=== PATIENT | female | born 1945 | race Caucasian/White ===

== ENCOUNTER 2016-11-03 14:56 | Inpatient (IN) | payer OTHER ==
[~2016-11-03] VITALS: Ht 157.5 cm; Wt 63.5 kg
[2016-11-03 15:01] VITALS: BP 159/100
[2016-11-03] MEDS ORDERED: DIAZ2TAB6 PO (15:07)
[2016-11-03] MEDS ORDERED: QUET50TA PO (15:07)
[2016-11-03] MEDS ORDERED: GABA300C PO (15:07)
[2016-11-03] MEDS ORDERED: ASPI325T49 PO (15:07)
[2016-11-03] MEDS ORDERED: ARIP2TAB11 PO (15:07)
[2016-11-03] MEDS ORDERED: LORA-476 PO (15:07)
[2016-11-03] MEDS ORDERED: MELO15TA11 PO (15:07)
[2016-11-03] MEDS ORDERED: SYN.075 PO (15:07)
[2016-11-03] MEDS ORDERED: ESCI20TA PO (15:07)
--- NOTE | 2016-11-03 15:09 | NUR ---
Patient BIBA BLS, transferred to bed 5. RN evaluating patient at bedside.
--- NOTE | 2016-11-03 15:10 | NUR ---
71/F BIBA FROM HOME FOR GRADUAL ONSET ABD PAIN WITH N/V. HX PERFORATED ESOPHAGUS, L KNEE REPLACED, CARDIAC HX. SKIN IS PINK/WARM/DRY; AAOX4 WITH EVEN AND UNSTEADY GAIT; LUNGS CLEAR BL; PT DENIES ANY FEVER, CP, SOB, OR COUGH AT THIS TIME; PATIENT STATES PAIN OF 5/10 AT THIS TIME; PATIENT POSITIONED FOR COMFORT; HOB ELEVATED; BEDRAILS UP X2; BED DOWN. ER MD MADE AWARE OF PT STATUS.
--- NOTE | 2016-11-03 15:10 | NUR ---
Note undone in EDM - 11/03/16 at 1648 by [email or web address] 71/F BIBA FROM HOME FOR GRADUAL ONSET ABD PAIN WITH N/V. HX PERFORATED ESOPHAGUS, L KNEE REPLACED, CARDIAC HX. SKIN IS PINK/WARM/DRY; AAOX4 WITH EVEN AND STEADY GAIT; LUNGS CLEAR BL; HR EVEN AND REGULAR; PT DENIES ANY FEVER, CP, SOB, OR COUGH AT THIS TIME; PATIENT STATES PAIN OF 5/10 AT THIS TIME; VSS; PATIENT POSITIONED FOR COMFORT; HOB ELEVATED; BEDRAILS UP X2; BED DOWN. ER MADE AWARE OF PT STATUS.
--- NOTE | 2016-11-03 15:19 | NUR ---
Dr. Quigley evaluating patient at bedside.
[2016-11-03] MEDS ORDERED: KETOROLAC 30 MG/ML VIAL IVP ONE (15:25)
[2016-11-03] MEDS ORDERED: NACL 0.9% 1,000 ML IV ONE (15:25)
[2016-11-03] MEDS ORDERED: ONDANSETRON 4 MG/2 ML VIAL IVP ONE (15:25)
--- NOTE | 2016-11-03 15:41 | NUR ---
INSERTED IV CATH 20G LAC; PT TOLERATED PROCEDURE WELL. IV PATENT/INTACT.
[2016-11-03 15:58] LABS: BASOPHILS # (AUTO) 0.1 K/uL (0.00-0.22); BASOPHILS % (AUTO) 1.3 % (0.0-2.0); EOSINOPHILS # (AUTO) 0.1 K/uL (0-0.4); EOSINOPHILS % (AUTO) 1.2 % (0.0-4.0); HEMATOCRIT 40.8 % (36-48); HEMOGLOBIN 13.1 g/dL (12.0-16.0); LYMPHOCYTES # (AUTO) 1.4 K/uL (2.5-16.5); LYMPHOCYTES % (AUTO) 13.1 % (20.5-51.1); MEAN CORPUSCULAR HEMOGLOBIN 29 pg (27-31); MEAN CORPUSCULAR HGB CONC 32 g/dL (33-37); MEAN CORPUSCULAR VOLUME 89 fL (80-94); MONOCYTES # (AUTO) 0.3 K/uL (0.8-1.0); MONOCYTES % (AUTO) 3.3 % (1.7-9.3); NEUTROPHILS # (AUTO) 8.6 K/uL (1.8-7.7); NEUTROPHILS % (AUTO) 81.1 % (42.2-75.2); PLATELET COUNT (AUTO) 290 K/uL (140-450); RED BLOOD CELL COUNT(AUTO) 4.57 MIL/uL (4.20-5.40); RED CELL DISTRIBUTION WIDTH 12.8 % (11.6-13.7); WHITE BLOOD COUNT (AUTO) 10.5 K/uL (4.8-10.8)
[2016-11-03 16:08] LABS: ANION GAP 10.1 (8-16); CALCIUM 9.2 mg/dL (8.5-10.1); CARBON DIOXIDE 29.9 mmol/L (21-32)
[2016-11-03 16:12] LABS: PARTIAL THROMBOPLASTIN TIME 27.1 secs (22-35.6); PROTHROMBIN TIME 10.4 secs (10.8-13.4)
[2016-11-03 16:18] LABS: LACTIC ACID 1.6 mmol/L (0.4-2.0)
[2016-11-03 16:23] LABS: ALBUMIN 3.4 g/dL (3.4-5.0); TOTAL BILIRUBIN 0.7 mg/dL (0.0-1.0); TOTAL PROTEIN, SERUM 9.2 g/dL (6.4-8.2)
[2016-11-03] MEDS ORDERED: LORazepam 2 MG/ML VIAL IVP ONE (16:30)
[2016-11-03] MEDS ORDERED: fentaNYL 0.05 MG/ML VIAL IVP ONE (16:30)
[2016-11-03] MEDS ORDERED: NACL 0.9% 1,000 ML IV SCH (16:57)
[2016-11-03] MEDS ORDERED: ONDANSETRON 4 MG/2 ML VIAL IVP PRN (17:00)
[2016-11-03] MEDS ORDERED: ACETAMINOPHEN 325 MG TAB PO PRN (17:00)
--- NOTE | 2016-11-03 17:21 | NUR ---
GAVE BREPORT TO BRANDON CABALLERO. BED 'S NOT READY YET. WILL CALL BACK.
[2016-11-03 17:32] LABS: CHOL/HDL RATIO 3.5 (1-4.5); FREE T4 (FREE THYROXINE) 1.19 ng/dL (0.76-1.46); PHOSPHORUS 3.6 mg/dL (2.5-4.9); THYROID STIMULATING HORMONE 0.38 uIU/mL (0.34-3.74)
--- NOTE | 2016-11-03 17:35 | NUR ---
BRANDON HANCOCK IN 15 MINS WILL CALL BACK; BED'S NOT AVAILABLE.
--- NOTE | 2016-11-03 17:43 | NUR ---
Patient will be admitted to care of DR TRAN. Admited to TELE. Will go to [id number]. Belongings list completed. Report to BRANDON CABALLERO.
[2016-11-03] MEDS ORDERED: FUROSEMIDE 20 MG TAB PO SCH (18:25)
[2016-11-03] MEDS ORDERED: LORazepam 1 MG TAB PO PRN (18:30)
--- NOTE | 2016-11-03 18:37 | NUR ---
RECEIVED PT ON FLOOR VIA DIRDIYA, PT IS A/OX4, PT APPEARS TO BE ANXIOUS, SKIN IS INTACT, IV IS ON THE LT AC, PATENT, INTACT, FLUSHING WELL, PT IS ON O2 2L NC, ORIENTED PT TO ROOM, DISCUSSED PLAN OF CARE WITH PT, PT VERBALIZED UNDERSTANDING, SAFETY/FALL PRECAUTIONS ARE IN PLACE, CALL LIGHT IS WITHIN REACH, WILL CONTINUE TO MONITOR.
[2016-11-03] MEDS ORDERED: FUROSEMIDE 20 MG/2 ML VIAL IVP SCH (18:50)
[2016-11-03] MEDS: HYDROcodone/APAP 7.5/325 MG 1 TAB PO PRN (19:29)
--- NOTE | 2016-11-03 19:30 | NUR ---
RECEIVED PHONE CALL FROM DR. SAGASTUME, PER DR. SAGASTUME DC THE AMPICILLIN AND START PT ON CEFOXITIN 1 GM, Q6H, IVPB.
--- NOTE | 2016-11-03 19:45 | NUR ---
ENDORSED PT TO BRANDON SANABRIA. FOR CONTINUITY OF CARE, PT IS STABLE AT THIS TIME, PT IS HAVING A BLOOD DRAW AT BEDSIDE.
--- NOTE | 2016-11-03 19:46 | NUR ---
RECEIVED PT FROM DAVID TAYLOR PT IS AAOX4 . ON TELEMETRY ST PT ANXIOUS AND PAIN MEDIC WAS GIVEN ORDER, HL ON LEFT AC PATENT ,SKIN IS INTACT, TECH IS HERE TO TAKE GALLBLADDER US. PT IS ORIENTED TO THE FLOOR CALL LIGHT WITHIN REACH
[2016-11-03 20:00] VITALS: BP 151/98
[2016-11-03] MEDS ORDERED: ASPIRIN 325 MG TAB PO SCH (21:00)
[2016-11-03] MEDS ORDERED: AMPICILLIN 1,000 MG in NACL 0.9% 50 ML IV SCH (21:00)
[2016-11-03 21:10] LABS: APPEARANCE,URINE HAZY (CLEAR); BILIRUBIN,URINE NEGATIVE (NEGATIVE); BLOOD, URINE 1+ (NEGATIVE); COLOR,URINE YELLOW (YELLOW); LEUKOCYTE ESTERASE ,URINE NEGATIVE (NEGATIVE); NITRITE, URINE NEGATIVE (NEGATIVE); PH,URINE 7.5 (5.0-9.0); PROTEIN,URINE 1+ (NEGATIVE); UGLUCOSE NEGATIVE (NEGATIVE); UROBILINOGEN,URINE 0.2 EU/dL (0.2 - 1)
[2016-11-03 21:13] LABS: WBC,URINE 0-5 /HPF (0-5)
[2016-11-03 21:14] LABS: MUCUS,URINE 1+ /LPF (None Seen)
[2016-11-03 21:15] LABS: BACTERIA,URINE 1+ /HPF (None Seen); URINE AMORPHOUS PHOSPHATES 1+ /HPF (None Seen)
[2016-11-03] MEDS: DIAZEPAM 2 MG TAB PO PRN (21:28)
[2016-11-03] MEDS: QUEtiapine FUMARATE 25 MG TAB PO SCH (21:29)
[2016-11-03] MEDS: DOCUSATE SODIUM 100 MG GELCAP PO SCH (21:29)
--- NOTE | 2016-11-03 22:00 | NUR ---
PT REPOSITIONED ON TELEMETRY ST NOT DISTRESS NOTED AT THIS TIME
--- NOTE | 2016-11-03 23:30 | NUR ---
HER NIECE CALLED AND SAID:"PT CAN NOT HAVE SURGERY UNDER GENERAL ANESTHESIA.BECAUSE HAS PROBLEM WITH HER TROTH .SHE HAD ALSO THIS PROBLEM AND HAD TRACH."TALKED W/DR. LANDEROS RESIDENT AND GAVE HER NIECE'S TELEPHONE NUMBER([phone]).
--- NOTE | 2016-11-03 23:35 | NUR ---
PT'S NIECE 'S NAME IS LYDIA AND # IS [phone].
[2016-11-04] VITALS: BP 107/83
--- NOTE | 2016-11-04 | NUR ---
PT WAS TRANSFER TO ROOM 124B NOT DISTRESS NOTED ON TELEMETRY ST
--- NOTE | 2016-11-04 00:30 | NUR ---
DR PANCHAL IS HERE AND TALKED TO PT
[2016-11-04] MEDS: MORPHINE SULFATE 2 MG/ML SYR IVP PRN ×2 (00:51→21:27)
[2016-11-04 04:00] VITALS: BP 90/60
--- NOTE | 2016-11-04 04:00 | NUR ---
SPONGE BATH GIVEN KARTHIK VIZCAINO REPOSITIONED ON TELE SR
[2016-11-04] MEDS: HYDROcodone/APAP 7.5/325 MG 1 TAB PO PRN ×2 (06:09→12:52)
--- NOTE | 2016-11-04 06:18 | NUR ---
PT LIKE TO TALK TO SURGEON DR Figueroa before sign a consent for cholecystectomy she is afraid for her hx 3 years ago that during endoscopy she had rupture of esophagus,
[2016-11-04 06:59] LABS: BASOPHILS # (AUTO) 0.2 K/uL (0.00-0.22); BASOPHILS % (AUTO) 2.4 % (0.0-2.0); EOSINOPHILS # (AUTO) 0.1 K/uL (0-0.4); EOSINOPHILS % (AUTO) 1.3 % (0.0-4.0); HEMATOCRIT 45.6 % (36-48); HEMOGLOBIN 14.4 g/dL (12.0-16.0); LYMPHOCYTES # (AUTO) 1.8 K/uL (2.5-16.5); LYMPHOCYTES % (AUTO) 17.8 % (20.5-51.1); MEAN CORPUSCULAR HEMOGLOBIN 29 pg (27-31); MEAN CORPUSCULAR HGB CONC 32 g/dL (33-37); MEAN CORPUSCULAR VOLUME 91 fL (80-94); MONOCYTES # (AUTO) 0.5 K/uL (0.8-1.0); MONOCYTES % (AUTO) 5.4 % (1.7-9.3); NEUTROPHILS # (AUTO) 7.4 K/uL (1.8-7.7); NEUTROPHILS % (AUTO) 73.1 % (42.2-75.2); PLATELET COUNT (AUTO) 286 K/uL (140-450); RED BLOOD CELL COUNT(AUTO) 5.01 MIL/uL (4.20-5.40)
[2016-11-04 07:13] LABS: ANION GAP 12.4 (8-16); CALCIUM 8.7 mg/dL (8.5-10.1); CARBON DIOXIDE 27.8 mmol/L (21-32); CREATININE 1.4 mg/dL (0.6-1.3); TOTAL BILIRUBIN 0.4 mg/dL (0.0-1.0); TOTAL PROTEIN, SERUM 8.6 g/dL (6.4-8.2)
[2016-11-04 07:16] LABS: POTASSIUM 5.2 mmol/L (3.5-5.1)
--- NOTE | 2016-11-04 07:21 | NUR ---
PT IS ENDORSED ;TO ESTELLA TAYLOR FOR CONTINUITY OF CARE
[2016-11-04 07:27] LABS: PROTHROMBIN TIME 10.4 secs (10.8-13.4)
--- NOTE | 2016-11-04 07:30 | NUR ---
RECEIVED PATIENT REPORT AT BEDSIDE FROM NIGHT NURSE. PATIENT SHOWS NO S/S OF DISTRESS ON ROOM AIR. ON TELE MONITOR. PATIENT IS AAOX4 AND STATES 3/10 ABD PAIN. SKIN INTACT. NOTED IV SITE ON THE L AC WITH IVF'S INFUSING WELL. PATIENT WAS EXPLAINED POC FOR TODAY. PATIENT VERBALIZES UNDERSTANDING HOWEVER APPEARS ANXIOUS. PATIENT WAS EDUCATED ON HOW TO USE THE CALL LIGHT FOR ASSISTANCE. THE BED IS LOWERED WITH CALL LIGHT WITHIN REACH. WILL CONTINUE TO MONITOR. Addendum: 11/04/16 at 1852 by Anh Gonzalez RN PATIENT IS ON O2 5L VIA NASAL CANNULA NOT ON ROOM AIR.
--- NOTE | 2016-11-04 07:55 | NUR ---
PATIENT HAS BEEN SCREENED AND CATEGORIZED MODERATE NUTRITION RISK. PATIENT WILL BE SEEN WITHIN 3-5 DAYS OF ADMISSION. 11/06/16-11/08/[address]
[2016-11-04 08:00] VITALS: BP 92/63
[2016-11-04] MEDS: ESCITALOPRAM 20 MG TAB PO SCH (08:26)
[2016-11-04] MEDS: LEVOTHYROXINE 0.075 MG TAB PO SCH (08:26)
[2016-11-04] MEDS: QUEtiapine FUMARATE 25 MG TAB PO SCH ×3 (08:27→21:40)
[2016-11-04] MEDS: GABAPENTIN 300 MG CAP PO SCH ×3 (08:27→17:00)
[2016-11-04] MEDS: DOCUSATE SODIUM 100 MG GELCAP PO SCH ×3 (08:27→21:40)
--- NOTE | 2016-11-04 08:31 | NUR ---
ADMINISTERED SCHEDULED MEDICATIONS. PATIENT VOICED C/O OF PAIN 06/04 ADMINISTERED TYLENOL 650 MG PO. WILL REASSESS PAIN IN 1 HR. PATIENT TOLERATED MEDICATIONS WELL. PATIENT IS NOW SPEAKING WITH NIECE CONCERNED ABOUT POSSIBLE SURGERY. PATIENT SHOWS NO S/S OF DISTRESS ON ROOM AIR. THE BED IS LOWERED WITH CALL LIGHT WITHIN REACH WILL CONTINUE TO MONITOR. Addendum: 11/04/16 at 1852 by Anh Gonzalez RN PATIENT IS ON O2 5L VIA NASAL CANNULA NOT ON ROOM AIR.
--- NOTE | 2016-11-04 08:35 | NUR ---
NOTIFIED MD OF PATIENT'S ELEVATED POTASSIUM LEVEL OF 5.2.
[2016-11-04] MEDS ORDERED: NACL 0.9% 1,000 ML IV SCH ×2 (08:40→11:25)
[2016-11-04] MEDS: SODIUM POLYSTYRENE 15 GM/60 ML UDBTL PO SCH ×3 (09:00→11:10)
[2016-11-04] MEDS ORDERED: ARIPIPRAZOLE 2 MG PO SCH (09:00)
[2016-11-04] MEDS ORDERED: LORazepam 0.5 MG TAB PO PRN (09:15)
[2016-11-04] MEDS ORDERED: ARIPiprazole 10 MG TAB PO SCH (09:15)
--- NOTE | 2016-11-04 09:30 | NUR ---
PATIENT STATES PAIN IS TOLERABLE AND WILL NOTIFY IF PAIN LEVEL WORSENS.
[2016-11-04] MEDS ORDERED: SODIUM POLYSTYRENE 15 GM/60 ML UDBTL PO ONE (10:00)
[2016-11-04] MEDS ORDERED: LACTOBACILLUS RHAMNOSUS GG 1 EACH CAP PO SCH (10:00)
--- NOTE | 2016-11-04 10:55 | NUR ---
ADMINISTERING PATIENTS MEDICATIONS. PATIENT TOLERATED WELL. PATIENT IS BEING SEEN BY SALES ENGINEER. PATIENT C/O ABD PAIN 10/04. WILL ADMINISTER PAIN MEDICATION.
--- NOTE | 2016-11-04 11:00 | NUR ---
PATIENT REFUSED TO TAKE KAYEXALATE. IS AWARE AND IS SEEING PATIENT. WILL AWAIT FOR FURTHER DIRECTIONS.
--- NOTE | 2016-11-04 11:05 | NUR ---
PATIENT STATES WHILE HAVING ECHO DONE SHE WAS EXPERIENCING ABD PAIN D/T THE MACHINE PRESSING AGAINST HER SKIN. PATIENT STATES HER PAIN IS NOT BAD HOWEVER HER PAIN IS 6/10 FOR ABD PAIN. PATIENT BP IS LOW WILL NOTIFY .
--- NOTE | 2016-11-04 11:30 | NUR ---
AWARE PATIENT REFUSED KAYEXALATE. STATES WE WILL MONITOR PATIENT'S POTASSIUM.
[2016-11-04 11:42] VITALS: BP 86/55
--- NOTE | 2016-11-04 12:25 | NUR ---
PATIENT IS C/O ABD PAIN /. PATIENT IS AWARE BP IS LOW AND ASKS FOR PAIN MEDICATION. DR IS AWARE AND APPROVED TO GIVE PRN PAIN MEDICATION NORCO 7.5/325 MG PO. WILL REASSESS FOR PAIN.
--- NOTE | 2016-11-04 12:30 | NUR ---
PATIENT WILL BE GIVEN NORCO 7.5/325MG PO. BP IS 86/[address] AWARE AND APPROVED TO GIVE PRN PAIN MEDICATION OF NORCO 7.5/325 MG PO. PATIENT BP WILL BE REASSESSED IN ONE HR. PATIENT CONTINUOUS TO C/O ABD PAIN.
[2016-11-04] MEDS: MELOXICAM 15 MG PO SCH (12:45)
[2016-11-04] MEDS: ARIPIPRAZOLE 2 MG PO SCH (12:45)
--- NOTE | 2016-11-04 12:55 | NUR ---
DR MALDONADO IS SEEING PATIENT AND OKAYED FOR PATIENT TO HAVE SURGERY TODAY.
--- NOTE | 2016-11-04 13:30 | NUR ---
PATIENT IS SLEEPING AND SHOWS NO S/S OF DISTRESS ON O2 5L VIA NASAL CANNULA. PATIENT FAMILY AT BEDSIDE. THE BED IS LOWERED WITH CALL LIGHT WITHIN REACH.
[2016-11-04 16:00] VITALS: BP 81/53
--- NOTE | 2016-11-04 16:00 | NUR ---
PATIENT IS RESTING COMFORTABLY AND SHOWS NO S/S OF DISTRESS ON O2 5L VIA NASAL CANNULA. PATIENT DENIES PAIN. THE BED IS LOWERED WITH CALL LIGHT WITHIN REACH.
--- NOTE | 2016-11-04 17:00 | NUR ---
PATIENT BEING SEEN BY DR SAGASTUME. EXPLAINED PROCEDURE TO PATIENT. PATIENT FAMILY IS AT BEDSIDE WELL. PATIENT AND FAMILY'S QUESTIONS WERE ALL ANSWERED. PATIENT CONSENT WAS SIGNED FOR PROCEDURE.
--- NOTE | 2016-11-04 17:21 | NUR ---
MEDICATIONS WERE NOT GIVEN BECAUSE PATIENT WAS OFF UNIT FOR PROCEDURE.
[2016-11-04] MEDS ORDERED: DESFLURANE 240 ML BTL INH ONE (17:30)
[2016-11-04] MEDS ORDERED: GLYCOPYRROLATE 0.2 MG/ML VIAL ONE (17:30)
[2016-11-04] MEDS ORDERED: ROCURONIUM 50 MG/5 ML VIAL IV ONE (17:30)
[2016-11-04] MEDS ORDERED: DEXAMETHASONE 4 MG/ML VIAL ONE (17:30)
[2016-11-04] MEDS ORDERED: KETOROLAC 60 MG/2 ML VIAL IM ONE (17:30)
[2016-11-04] MEDS ORDERED: PHENYLEPHRINE 10 MG/ML VIAL ONE (17:30)
[2016-11-04] MEDS ORDERED: PROPOFOL 200 MG/20 ML VIAL IV ONE (17:30)
[2016-11-04] MEDS ORDERED: ONDANSETRON 4 MG/2 ML VIAL ONE (17:30)
[2016-11-04] MEDS ORDERED: BUPIVACAINE-MPF/EPI 0.25% 30 ML VIAL INJ ONE ×2 (17:50)
[2016-11-04] MEDS ORDERED: MEPERIDINE 50 MG/ML SYR IM ONE (18:00)
--- NOTE | 2016-11-04 18:00 | NUR ---
SCHEDULED MEDICATIONS WERE NOT GIVE BC PATIENT WAS OFF UNIT FOR PROCEDURE.
[2016-11-04] MEDS ORDERED: fentaNYL 0.05 MG/ML VIAL ONE (18:01)
[2016-11-04] MEDS ORDERED: MIDAZOLAM 2 MG/2 ML VIAL ONE (18:01)
[2016-11-04] MEDS ORDERED: MIDAZOLAM 2 MG/2 ML VIAL IVP ONE (18:45)
[2016-11-04] MEDS ORDERED: MEPERIDINE 25 MG/ML SYR IVP PRN (18:45)
[2016-11-04] MEDS ORDERED: METOCLOPRAMIDE 10 MG/2 ML INJ VIAL IVP PRN (18:45)
[2016-11-04] MEDS ORDERED: THROMBIN KIT 20 MU VIAL TP ONE (19:05)
--- NOTE | 2016-11-04 19:05 | NUR ---
RECEIVED PATIENT REPORT. PATIENT CURRENTLY OFF THE UNIT FOR SURGERY. PATIENT'S IN THE ROOM
--- NOTE | 2016-11-04 19:05 | NUR ---
PATIENT IS OFF UNIT. PATIENT REPORT WAS GIVEN TO NIGHT NURSE FOR CONTINUITY OF CARE. PATIENT FAMILY IN ROOM AND AWARE OF CHANGE OF SHIFT.
[2016-11-04] MEDS ORDERED: DEXT 5% / NACL 0.45% 1,000 ML IV SCH (19:20)
[2016-11-04] MEDS: MEPERIDINE 25 MG/ML SYR IVP PRN ×2 (20:05→20:20)
[2016-11-04 20:36] LABS: ANION GAP 11.2 (8-16); CARBON DIOXIDE 28.8 mmol/L (21-32); CREATININE 1.4 mg/dL (0.6-1.3)
[2016-11-04 20:50] VITALS: BP 109/63
--- NOTE | 2016-11-04 20:50 | NUR ---
PATIENT RETURNED TO THE UNIT S/P LAP PANFILO. PATIENT AWAKE AND ALERT. PATIENT PUT ON 6L 02 VIA NON-REBREATHER MASK. VSS WITHIN NORMAL LIMITS. 4 ABD INCISIONS NOTED TO THE ABD. INCISIONS BUCK, DRY AND INTACT AND POWER DISTRIBUTION ENGINEER. PATIENT PLACED ON TELE MONITORING. BED LOWERED WITH CALL LIGHT WITHIN REACH. WILL CONTINUE TO MONITOR
[2016-11-05] VITALS (16 sets, daily range): BP systolic 74–106; BP diastolic 40–61
--- NOTE | 2016-11-05 01:04 | NUR ---
MADE DR LANDEROS AWARE OF PATIENT BP OF 83/49. NO NEW ORDERS
--- NOTE | 2016-11-05 03:45 | NUR ---
PATIENT ASLEEP IN BED. NO S/S OF DISTRESS NOTED
[2016-11-05] MEDS: MORPHINE SULFATE 2 MG/ML SYR IVP PRN ×2 (04:09→23:49)
[2016-11-05] MEDS: HYDROcodone/APAP 7.5/325 MG 1 TAB PO PRN (05:39)
[2016-11-05 05:52] LABS: BASOPHILS # (AUTO) 0.1 K/uL (0.00-0.22); BASOPHILS % (AUTO) 1.5 % (0.0-2.0); EOSINOPHILS # (AUTO) 0.1 K/uL (0-0.4); EOSINOPHILS % (AUTO) 1.6 % (0.0-4.0); HEMATOCRIT 33.1 % (36-48); HEMOGLOBIN 10.4 g/dL (12.0-16.0); LYMPHOCYTES % (AUTO) 12.2 % (20.5-51.1); MEAN CORPUSCULAR HEMOGLOBIN 28 pg (27-31); MEAN CORPUSCULAR HGB CONC 32 g/dL (33-37); MEAN CORPUSCULAR VOLUME 90 fL (80-94); MONOCYTES # (AUTO) 0.4 K/uL (0.8-1.0); MONOCYTES % (AUTO) 4.6 % (1.7-9.3); NEUTROPHILS # (AUTO) 6.3 K/uL (1.8-7.7); NEUTROPHILS % (AUTO) 80.1 % (42.2-75.2); PLATELET COUNT (AUTO) 212 K/uL (140-450); RED BLOOD CELL COUNT(AUTO) 3.69 MIL/uL (4.20-5.40); RED CELL DISTRIBUTION WIDTH 12.8 % (11.6-13.7); WHITE BLOOD COUNT (AUTO) 7.9 K/uL (4.8-10.8)
[2016-11-05 06:10] LABS: ALBUMIN 2.4 g/dL (3.4-5.0); ANION GAP 7.4 (8-16); CALCIUM 7.9 mg/dL (8.5-10.1); CARBON DIOXIDE 31.9 mmol/L (21-32); CREATININE 1.1 mg/dL (0.6-1.3); POTASSIUM 4.3 mmol/L (3.5-5.1); TOTAL BILIRUBIN 0.2 mg/dL (0.0-1.0); TOTAL PROTEIN, SERUM 6.7 g/dL (6.4-8.2)
[2016-11-05 06:15] LABS: MAGNESIUM 2.1 mg/dL (1.8-2.4); PHOSPHORUS 3.7 mg/dL (2.5-4.9)
--- NOTE | 2016-11-05 07:17 | NUR ---
PATIENT REPORT GIVEN AT BEDSIDE. PATIENT ENDORSED IN STABLE CONDITION
--- NOTE | 2016-11-05 07:20 | NUR ---
RECEIVED PATIENT REPORT AT BEDSIDE FROM NIGHT NURSE. PATIENT SHOWS NO S/S OF DISTRESS ON O2 2L NC. ON TELE MONITOR. PATIENT IS AAOX4 AND STATES 7/10 ABD PAIN. MD'S ARE AWARE OF PATIENTS LOW BP AND AWARE OF PATIENT PAIN LEVEL. PATIENT IS S/P LAPAROSCOPIC CHOLECYSTECTOMY 11/04/16 WITH 4 ABD INCISIONS WITH ECCHYMOSIS SURROUNDING EACH INCISION. NOTED IV SITE ON THE L AC WITH IVF'S INFUSING WELL. PATIENT WAS EXPLAINED POC FOR TODAY. PATIENT VERBALIZES UNDERSTANDING. PATIENT WAS EDUCATED ON HOW TO USE THE CALL LIGHT FOR ASSISTANCE. THE BED IS LOWERED WITH CALL LIGHT WITHIN REACH. WILL CONTINUE TO MONITOR.
[2016-11-05] MEDS ORDERED: ALBUTEROL SULFATE/IPRATROPIU 3 ML SOL IH PRN (07:55)
[2016-11-05] MEDS ORDERED: FUROSEMIDE 20 MG/2 ML VIAL IVP SCH (08:30)
[2016-11-05] MEDS ORDERED: KETOROLAC 10 MG TAB PO SCH (09:00)
--- NOTE | 2016-11-05 09:15 | NUR ---
PATIENT BEING SEEN BY DR SAGASTUME.
[2016-11-05] MEDS: LACTOBACILLUS RHAMNOSUS GG 1 EACH CAP PO SCH (09:18)
[2016-11-05] MEDS: DOCUSATE SODIUM 100 MG GELCAP PO SCH ×2 (09:18→21:43)
[2016-11-05] MEDS: ESCITALOPRAM 20 MG TAB PO SCH (09:19)
[2016-11-05] MEDS: GABAPENTIN 300 MG CAP PO SCH ×3 (09:20→17:00)
--- NOTE | 2016-11-05 09:20 | NUR ---
ADMINISTERED SCHEDULED MEDICATIONS. PATIENT TOOK ONE MEDICATION AT A TIME. PATIENT HAS C/O ABD PAIN AND PAIN WHILE BREATHING. MD IS AWARE AND SCHEDULED ONE TIME DOSE OF KETOROLAC 10 MG PO AND BREATHING TX. PATIENT TOLERATED ACTIVITY WELL. THE BED IS LOWERED WITH CALL LIGHT WITHIN REACH.
[2016-11-05] MEDS: ARIPIPRAZOLE 2 MG PO SCH (09:21)
[2016-11-05] MEDS: MELOXICAM 15 MG PO SCH (09:22)
[2016-11-05] MEDS: LEVOTHYROXINE 0.075 MG TAB PO SCH (09:22)
[2016-11-05] MEDS: QUEtiapine FUMARATE 25 MG TAB PO SCH ×2 (09:22→21:43)
[2016-11-05] MEDS ORDERED: HYDROcodone/APAP 10/325 MG 1 TAB TAB PO SCH (09:30)
--- NOTE | 2016-11-05 10:00 | NUR ---
PATIENT HAS FAMILY AT BEDSIDE. PATIENT SHOWS NO S/S OF DISTRESS ON O2 2L VIA NC. WILL CONTINUE TO MONITOR.
[2016-11-05] MEDS: CHLORHEXADINE GLUC 2% CLOTH TP SCH (11:00)
--- NOTE | 2016-11-05 11:17 | NUR ---
SS NOTE: PER TAYLA FROM DR. MONGE'S OFFICE ([phone]), DR. MONGE USES [facility] ([phone]).
--- NOTE | 2016-11-05 12:50 | NUR ---
ARRIVED TO PATIENT ROOM. PATIENT C/O PAIN AND REQUEST FOR PAIN MEDICATIONS. CHECKED BP AND IS 74/40. DR MALDONADO CAME TO SEE PATIENT AND IS AWARE OF PT BP. PATIENT DENIES PAIN AND SOB. DR MALDONADO WILL PLACE ORDERS FOR 250 CC NS BOLUS. WILL AWAIT FOR ORDERS.
[2016-11-05] MEDS: MUPIROCIN 2% OINT 22 GM TUBE TP SCH (12:58)
[2016-11-05] MEDS ORDERED: NACL 0.9% 250 ML IV SCH ×2 (13:00→14:10)
--- NOTE | 2016-11-05 13:05 | NUR ---
PATIENT BP IS NO 85/50 AFTER ADMINISTERING 100CC'S OF NS BOLUS. WILL REASSESS AGAIN AFTER THE NEXT 100CC'S.
--- NOTE | 2016-11-05 13:13 | NUR ---
PATIENT BP IS NOW 88/56. PATIENT DENIES SOB AND CHEST PAIN. PATIENT STATES "I FEEL FINE". WILL REASSESS BP IN 15 MIN.
--- NOTE | 2016-11-05 13:22 | NUR ---
NOTIFIED DR. ODOM OF PATIENT BP OF 92/55. WILL ADMINISTER THE LAST 50CC OF IV NS BOLUS FROM DR MALDONADO'S ORDERS. WILL AWAIT FOR NEW ORDERS.
--- NOTE | 2016-11-05 13:40 | NUR ---
RECHECKED BP AT 82/50 HR 80. PATIENT IS ASYMPTOMATIC, DENIES CHEST PAIN, DIZZINESS, AND SOB. WILL RECHECK IN 10MIN.
--- NOTE | 2016-11-05 13:50 | NUR ---
PATIENT BP IS 81/45. PATIENT CONTINUOS TO DENY CHEST PAIN AND SOB. MD ODOM WAS NOTIFIED AND WILL SEE PATIENT.
--- NOTE | 2016-11-05 14:00 | NUR ---
CHANGED BP MACHINES AND RECHECKED BP AT 91/[address] ODOM IS SEEING PATIENT AND AWARE OF LOW BP. DR TOMAS IN ORDER TO GIVE 250CC OF NORMAL SALINE AT A RATE OF 125 ML/HR WILL INITIATE.
--- NOTE | 2016-11-05 14:10 | NUR ---
BP WAS RECHECKED AT 91/53. 250CC OF NS AT 125 ML/HR WILL BE STARTED NOW. PATIENT SHOWS NO S/S OF ACUTE DISTRESS. PATIENT IS AAOX4 AND ON O2 2L VIA NC. RT IS NOW WITH PATIENT AND WILL BEGIN A BREATHING TX.
--- NOTE | 2016-11-05 14:25 | NUR ---
BP IS 84/53. WILL CONTINUE TO REASSESS EVERY 15 MIN.
--- NOTE | 2016-11-05 14:40 | NUR ---
BP IS NOW 84/50 WITH 75ML ALREADY INFUSED. MD WILL BE NOTIFIED AFTER 150 CC OF NS HAS BEEN INFUSED AND BE NOTIFIED OF NEW BP.
--- NOTE | 2016-11-05 15:25 | NUR ---
NOTIFIED OF BP OF 85/49 AFTER INFUSING 150 CC OF NS AT 125 ML/HR. DR ORDERED TO CONTINUE IVF'S.
--- NOTE | 2016-11-05 16:20 | NUR ---
PATIENT BP IS 96/55 AFTER INFUSING 250 CC'S OF NS AT 125 ML/HR. MD REQUEST TO AMB PATIENT IN UNIT.
--- NOTE | 2016-11-05 16:45 | NUR ---
PATIENT BP IS NOW 104/54 AND DENIES PAIN AND SOB. PATIENT SHOWS NO S/S OF ACUTE DISTRESS. PATIENT IS ASYMPTOMATIC. WILL CONTINUE TO MONITOR. PATIENT IS AWARE MD WOULD LIKE HER TO AMB.
--- NOTE | 2016-11-05 17:30 | NUR ---
PATIENT BP IS 98/55 AND DENIES PAIN AND SOB. PATIENT ASKED TO AMB ON UNIT HOWEVER PATIENT'S DINNER ARRIVED. STATED SHE WOULD AMB AFTER EATING DINNER. ASSESS PATIENT IV AND IT IS LEAKING. WILL INSERT A NEW IV.
--- NOTE | 2016-11-05 18:00 | NUR ---
WAS NOT ABLE TO ADMINISTER SCHEDULED MEDICATIONS. MEDICATION ROOM IS CLOSED FOR MAINTENANCE. WILL ENDORSED TO NIGHT NURSE.
--- NOTE | 2016-11-05 18:43 | NUR ---
PATIENT SEEN BY
--- NOTE | 2016-11-05 18:50 | NUR ---
CAMPBELL FROM DR CATHY MONGE CALLED TO HAVE MD ORDER FOR PATIENT TO CONTINUE [facility] AND TO SEND OVER THE ORDER TO THEM FAX # is [phone] PHONE # [phone].
--- NOTE | 2016-11-05 18:53 | NUR ---
* ST NOTE * Pt seen at bedside. Bedside dysphagia and oral mechanism exams completed. See evaluation report for further details. Pt tolerating 5/5 alternating PO trials of regular solid dinner w/out s/s of aspiration, exhibiting no residue or pocketing of solids in oral cavity during or after PO intake. Pt also tolerating 4/4 alternating PO trials of thin liquid milk via a straw w/out s/s of aspiration, exhibiting clear voicing WFL w/out wet or gargly vocal quality after PO intake. Pt and caregiver/nsg education completed regarding safe swallow compensatory strategies pt could utilize to aid with swallow function, with pt and caregivers/nsg verbalizing understanding and agreement with clinicians' recommendations. Pt is safe to remain on current PO diet consistency of regular solids with thin liquids for all meals, and does not require further ST follow up at this time. Pt and caregiver/nsg education completed regarding results of evaluation; benefits of abiding by aspiration precautions; and prognosis for improvement; with pt and caregiver/nsg verbalizing understanding and agreement with clinician's recommendations. Recommend: - Continuation of Regular solids with thin liquids PO diet consistency - Distal supervision by caregivers/staff/family during PO intake to assure aspiration precautions are in place No further ST follow up recommended at this time. G8996 CI G8997 CH G8998 NOMS Level 1 Time In/Out 17:45 - 18:15
--- NOTE | 2016-11-05 19:20 | NUR ---
RECEIVED PATIENT REPORT AT BEDSIDE. PATIENT AWAKE, ALERT AND ORIENTED. NO S/S OF OF DISTRESS NOTED. ABD INCISIONS CLEAN DRY AND INTACT. NO IV LINE IN PLACE. PATIENT ON TELE MONITORING. BED LOWERED WITH CALL LIGHT WITHIN REACH. WILL CONTINUE TO MONITOR
--- NOTE | 2016-11-05 19:20 | NUR ---
PATIENT IS AAOX4 AND SHOWS NO S/S OF ACUTE DISTRESS ON 2L O2 NC. PATIENT ORDERS HAVE BEEN ENDORSED TO LEDY TAYLOR TO OBTAIN ORTHOSTATIC BP, AMB PATIENT, AND IS AWARE OF PATIENT IV DISCONTINUED FROM EARLIER. GAVE REST OF PT REPORT AT BEDSIDE. PATIENT ENDORSED IN STABLE CONDITION.
--- NOTE | 2016-11-05 20:30 | NUR ---
BP 89/54 WHILE PATIENT IS ON [place] POSITION. HR 88. O2 SAT 98% ON ROOM AIR. NO S/S OF DISTRESS. WILL CONTINUE TO MONITOR
--- NOTE | 2016-11-05 20:30 | NUR ---
PATIENT REFUSED TO WEAR SCD. PURPOSE AND RISK AND BENEFITS DISCUSSED WITH THE PATIENT. PATIENT STILL REFUSED TO HAVE SCD IN PLACE
[2016-11-05] MEDS: DIAZEPAM 2 MG TAB PO PRN (21:43)
[2016-11-05] MEDS ORDERED: NACL 0.9% 1,000 ML IV SCH (22:00)
--- NOTE | 2016-11-05 22:51 | NUR ---
PATIENT ASLEEP IN BED. NO S/S OF DISTRESS NOTED. WILL CONTINUE TO MONITOR
--- NOTE | 2016-11-05 23:35 | NUR ---
SCHEDULED ANTIBIOTIC FOR 1800 NOT ADMINISTERED. NEW IV LINE STARTED AT 2130. NEXT SCHEDULED DOSE ADMINISTERED
--- NOTE | 2016-11-06 01:26 | NUR ---
PATIENT ASLEEP IN BED. NO S/S OF DISTRESS NOTED
[2016-11-06 02:52] VITALS: BP 100/60
[2016-11-06] MEDS: HYDROcodone/APAP 7.5/325 MG 1 TAB PO PRN ×3 (02:56→14:33)
[2016-11-06 05:51] LABS: BASOPHILS # (AUTO) 0.3 K/uL (0.00-0.22); BASOPHILS % (AUTO) 4.4 % (0.0-2.0); EOSINOPHILS # (AUTO) 0.1 K/uL (0-0.4); EOSINOPHILS % (AUTO) 1.5 % (0.0-4.0); HEMATOCRIT 33.6 % (36-48); HEMOGLOBIN 10.4 g/dL (12.0-16.0); LYMPHOCYTES # (AUTO) 2.1 K/uL (2.5-16.5); LYMPHOCYTES % (AUTO) 33.9 % (20.5-51.1); MEAN CORPUSCULAR HEMOGLOBIN 28 pg (27-31); MEAN CORPUSCULAR HGB CONC 31 g/dL (33-37); MEAN CORPUSCULAR VOLUME 91 fL (80-94); MONOCYTES # (AUTO) 0.5 K/uL (0.8-1.0); MONOCYTES % (AUTO) 7.9 % (1.7-9.3); NEUTROPHILS # (AUTO) 3.1 K/uL (1.8-7.7); NEUTROPHILS % (AUTO) 52.3 % (42.2-75.2); PLATELET COUNT (AUTO) 195 K/uL (140-450); RED BLOOD CELL COUNT(AUTO) 3.68 MIL/uL (4.20-5.40); RED CELL DISTRIBUTION WIDTH 12.6 % (11.6-13.7); WHITE BLOOD COUNT (AUTO) 6.1 K/uL (4.8-10.8)
[2016-11-06 06:09] LABS: PHOSPHORUS 2.6 mg/dL (2.5-4.9)
[2016-11-06 06:10] LABS: ANION GAP 8.5 (8-16); CALCIUM 7.7 mg/dL (8.5-10.1); CARBON DIOXIDE 29.7 mmol/L (21-32); CREATININE 0.9 mg/dL (0.6-1.3); POTASSIUM 4.2 mmol/L (3.5-5.1)
--- NOTE | 2016-11-06 07:29 | NUR ---
PATIENT REPORT GIVEN AT BEDSIDE. PATIENT ENDORSED IN STABLE CONDITION
--- NOTE | 2016-11-06 07:30 | NUR ---
RECEIVED PT ON BED AWAKE. NO SOB NOTED. NO C/O PAIN AT THIS TIME. IV TO LEFT HAND PATENT AND INTACT. CHEST, DIMINISHED AIR ENTRY TO THE BASES, OTHERWISE CLEAR. ABDOMEN SOFT, BOWEL SOUNDS PRESENT. WITH 4 SMALL ABDOMINAL INCISIONS GLUED, SITE CLEAN AND DRY (S/P BUCKY WHITTAKER 11/04/16), ABDOMINAL BINDER IN PLACE. INSTRUCTED PT TO CALL FOR ASSISTANCE, CALL LIGHT WITHIN REACH. PT VERBALIZED PARTIAL UNDERSTANDING. Addendum: 11/06/16 at 1131 by Heather Jim RN PT VERBALIZED UNDERSTANDING.
[2016-11-06 08:00] VITALS: BP 94/63
[2016-11-06] MEDS: LACTOBACILLUS RHAMNOSUS GG 1 EACH CAP PO SCH (09:20)
[2016-11-06] MEDS: GABAPENTIN 300 MG CAP PO SCH ×2 (09:20→13:33)
[2016-11-06] MEDS: MELOXICAM 15 MG PO SCH (09:21)
[2016-11-06] MEDS: ARIPIPRAZOLE 2 MG PO SCH (09:21)
[2016-11-06] MEDS: LEVOTHYROXINE 0.075 MG TAB PO SCH (09:21)
[2016-11-06] MEDS: MUPIROCIN 2% OINT 22 GM TUBE TP SCH (11:48)
[2016-11-06] MEDS: DOCUSATE SODIUM 100 MG GELCAP PO SCH (11:58)
[2016-11-06] MEDS: QUEtiapine FUMARATE 25 MG TAB PO SCH (11:59)
[2016-11-06] MEDS: ESCITALOPRAM 20 MG TAB PO SCH (11:59)
[2016-11-06] MEDS: CHLORHEXADINE GLUC 2% CLOTH TP SCH (11:59)
[2016-11-06 12:00] VITALS: BP 93/59
[2016-11-06 14:15] VITALS: BP 95/55
--- NOTE | 2016-11-06 15:29 | NUR ---
Social Service Note: I called and spoke with Sowmya from [facility] . Per Sowmya, their fax number for their referrals is . I faxed inquiry.
--- NOTE | 2016-11-06 15:30 | NUR ---
DISCHARGE PHOTOS TAKEN AND DOCUMENTED.
[2016-11-06] MEDS ORDERED: ACET-9529 PO (15:34)
--- NOTE | 2016-11-06 15:50 | NUR ---
Social Service Note: Per Sowmya from [facility] , they will send a nurse to patient's home tomorrow, patient's nurse Heather aware.
[2016-11-06] MEDS ORDERED: BACTO TP (15:57)
[2016-11-06 16:00] VITALS: BP 105/60
--- NOTE | 2016-11-06 17:40 | NUR ---
DISCHARGE INSTRUCTIONS AND PRESCRIPTIONS GIVEN TO PT WHICH VERBALIZED FULL UNDERSTANDING OF THE INSTRUCTIONS AND THE NEED TO FOLLOW UP WITH PCP AND DR. SAGASTUME. ARM BANDS AND IV REMOVED, CANNULA TIP INTACT.
--- NOTE | 2016-11-06 17:55 | NUR ---
PT WHEELED TO THE PARKING LOT IN STABLE CONDITION. NO C/O PAIN. ABDOMINAL SURGICAL INCISIONS CLEAN AND DRY. BINDER IN PLACE. PT IS DISCHARGE HOME WITH FRIEND.
== END 2016-11-06 17:55 | disposition home health service (06) | DRG 417 ==
LOC: MED 14:56 → MTU 17:04
PROVIDERS: ADMIT Family Medicine; ATTEND Family Medicine
PROC: 0FT44ZZ Resection of Gallbladder, Percutaneous Endoscopic Approach (ICD-10-PCS; principal; 2016-11-04 17:00)
DX: K80.00 Calculus of gallbladder with acute cholecystitis without obstruction (principal); I50.43 Acute on chronic combined systolic (congestive) and diastolic (congestive) heart failure; N17.0 Acute kidney failure with tubular necrosis; E43 Unspecified severe protein-calorie malnutrition; N18.4 Chronic kidney disease, stage 4 (severe); E87.5 Hyperkalemia; E03.9 Hypothyroidism, unspecified; G62.9 Polyneuropathy, unspecified; F41.1 Generalized anxiety disorder; R31.9 Hematuria, unspecified; F32.9 Major depressive disorder, single episode, unspecified; D64.9 Anemia, unspecified; E87.8 Other disorders of electrolyte and fluid balance, not elsewhere classified; Z68.25 Body mass index [BMI] 25.0-25.9, adult; Z22.322 Carrier or suspected carrier of Methicillin resistant Staphylococcus aureus; Z79.82 Long term (current) use of aspirin; Z79.899 Other long term (current) drug therapy; Z96.652 Presence of left artificial knee joint; Z90.710 Acquired absence of both cervix and uterus; R74.0 Nonspecific elevation of levels of transaminase and lactic acid dehydrogenase [LDH]
CPT/HCPCS: 36415; 71010; 76705; 80048; 80053; 81001; 82150; 83036; 83605; 83690; 83735; 83880; 84100; 84439; 84443; 84484; 85025; 85610; 85730; 86886; 86900; 86901; 87040; 87081; 87086; 88304; 92610; 93005; 94640; 96374; 96375; 97116; 97140; 97530; 99285; J0290; J0694; J1100; J1885; J1940; J2060; J2175; J2250; J2270; J2370; J2405; J2704; J3010; J3490; J7030; J7060; J7620; Q0092

== ENCOUNTER 2023-08-05 15:33 | Inpatient (IN) | payer OTHER ==
[~2023-08-05] VITALS: Ht 160 cm; Wt 92.5 kg
[~2023-08-05 15:33] MED LIST: ACET-9529 PO; ARIP2TAB16 PO; ASPI-1205 PO; DIAZ2TAB6 PO; ESCI20TA PO; GABA300C PO; LORA-476 PO; QUET50TA PO; SYN.075 PO
[2023-08-05 15:41] VITALS: BP 157/109; PULSE 117; RESP 20; TEMP 98.4; O2SAT 98
[2023-08-05 17:08] LABS: BASOPHILS % (AUTO) 0.3 % (0.0-2.0); HEMATOCRIT 37.6 % (36-48); HEMOGLOBIN 12.5 g/dL (12.0-16.0); LYMPHOCYTES # (AUTO) 0.3 K/uL (2.5-16.5); LYMPHOCYTES % (AUTO) 4.7 % (20.5-51.1); MEAN CORPUSCULAR HEMOGLOBIN 33 pg (27-31); MEAN CORPUSCULAR HGB CONC 33 g/dL (33-37); MEAN CORPUSCULAR VOLUME 99.2 fL (80-94); MONOCYTES % (AUTO) 0.5 % (1.7-9.3); NEUTROPHILS # (AUTO) 5.8 K/uL (1.8-7.7); NEUTROPHILS % (AUTO) 94.5 % (42.2-75.2); PLATELET COUNT (AUTO) 199 K/uL (140-450); RED BLOOD CELL COUNT(AUTO) 3.79 MIL/uL (4.20-5.40); RED CELL DISTRIBUTION WIDTH 14.5 % (11.6-13.7); WHITE BLOOD COUNT (AUTO) 6.1 K/uL (4.8-10.8)
[2023-08-05 17:09] LABS: APPEARANCE,URINE CLEAR (CLEAR); BILIRUBIN,URINE NEGATIVE (NEGATIVE); BLOOD, URINE NEGATIVE (NEGATIVE); COLOR,URINE YELLOW (YELLOW); LEUKOCYTE ESTERASE ,URINE NEGATIVE (NEGATIVE); NITRITE, URINE NEGATIVE (NEGATIVE); PROTEIN,URINE 1+ (NEGATIVE); UGLUCOSE NEGATIVE (NEGATIVE); UROBILINOGEN,URINE 0.2 EU/dL (0.2 - 1)
[2023-08-05] MEDS: NACL 0.9% 1,000 ML IV SCH ×2 (17:09→19:30)
[2023-08-05] MEDS ORDERED: KETOROLAC 30 MG/ML VIAL ONE (17:13)
[2023-08-05] MEDS ORDERED: cefTRIAXone 1,000 MG VIAL ONE (17:14)
[2023-08-05] MEDS: KETOROLAC 30 MG/ML VIAL IVP ONE (17:17)
[2023-08-05] MEDS: cefTRIAXone 1,000 MG in DEXT 5% MINI-BAG PLUS 50 ML IV ONE (17:18)
[2023-08-05 17:25] LABS: ANION GAP 14.9 (8-16); CALCIUM 8.6 mg/dL (8.5-10.1); CARBON DIOXIDE 25.6 mmol/L (21-32); CHLORIDE 101 mmol/L (98-107); GLUCOSE 125 mg/dL (74-106); POTASSIUM 4.5 mmol/L (3.5-5.1); SODIUM SERUM 137 mmol/L (136-145); UREA NITROGEN, BLOOD 23 mg/dL (7-18)
[2023-08-05 17:35] LABS: BACTERIA,URINE FEW /HPF (None Seen); MUCUS,URINE None Seen /LPF (None Seen); RBC,URINE 0-5 /HPF (0-5); SQUAMOUS EPITHELIAL CELL,UR 0-3 (FEW) /LPF (0-3 (FEW)); TRICHOMONAS,URINE None Seen /HPF (None Seen); WBC,URINE 0-5 /HPF (0-5); WHITE BLOOD CELL CASTS,URINE None Seen /LPF (None Seen); YEAST,URINE None Seen /HPF (None Seen)
[2023-08-05 17:53] LABS: LACTIC ACID 1.2 mmol/L (0.4-2.0)
[2023-08-05] MEDS ORDERED: ALBUTEROL 0.083% 2.5 MG/3 ML NEBU INH PRN (18:10)
[2023-08-05] MEDS ORDERED: ONDANSETRON 4 MG/2 ML VIAL IVP PRN (18:10)
[2023-08-05] MEDS: LORazepam 2 MG/ML VIAL IVP ONE (20:17)
[2023-08-05] MEDS ORDERED: QUEtiapine FUMARATE 25 MG TAB ONE (21:45)
[2023-08-05] MEDS: QUEtiapine FUMARATE 25 MG TAB PO SCH (21:48)
[2023-08-06 00:20] VITALS: BP 156/96; PULSE 95; RESP 20; TEMP 97.2; O2SAT 100
[2023-08-06] MEDS: LORazepam 1 MG TAB PO PRN (01:50)
[2023-08-06] MEDS: ACETAMINOPHEN 325 MG TAB PO PRN (01:51)
[2023-08-06 05:00] VITALS: BP 174/81; PULSE 78; RESP 18; TEMP 98.1; O2SAT 97
[2023-08-06 05:43] LABS: ANION GAP 13.1 (8-16); CALCIUM 8.4 mg/dL (8.5-10.1); CARBON DIOXIDE 25.2 mmol/L (21-32); CHLORIDE 103 mmol/L (98-107); CREATININE 0.8 mg/dL (0.6-1.3); GLUCOSE 92 mg/dL (74-106); POTASSIUM 4.3 mmol/L (3.5-5.1); SODIUM SERUM 137 mmol/L (136-145); UREA NITROGEN, BLOOD 16 mg/dL (7-18)
[2023-08-06] MEDS: LEVOTHYROXINE 0.075 MG TAB PO SCH (06:16)
[2023-08-06] MEDS: hydrALAZINE 20 MG/ML VIAL IVP PRN (06:18)
[2023-08-06 06:21] LABS: BASOPHILS % (AUTO) 0.1 % (0.0-2.0); HEMATOCRIT 35.7 % (36-48); HEMOGLOBIN 11.7 g/dL (12.0-16.0); LYMPHOCYTES # (AUTO) 1.3 K/uL (2.5-16.5); LYMPHOCYTES % (AUTO) 18.7 % (20.5-51.1); MEAN CORPUSCULAR HEMOGLOBIN 33 pg (27-31); MEAN CORPUSCULAR HGB CONC 33 g/dL (33-37); MEAN CORPUSCULAR VOLUME 100.2 fL (80-94); MONOCYTES # (AUTO) 0.3 K/uL (0.8-1.0); MONOCYTES % (AUTO) 3.9 % (1.7-9.3); NEUTROPHILS # (AUTO) 5.4 K/uL (1.8-7.7); NEUTROPHILS % (AUTO) 77.3 % (42.2-75.2); PLATELET COUNT (AUTO) 185 K/uL (140-450); RED BLOOD CELL COUNT(AUTO) 3.56 MIL/uL (4.20-5.40); RED CELL DISTRIBUTION WIDTH 14.6 % (11.6-13.7)
[2023-08-06 08:00] VITALS: BP 158/70; PULSE 78; RESP 18; TEMP 98.1; O2SAT 97
[2023-08-06] MEDS: GABAPENTIN 300 MG CAP PO SCH (08:38)
[2023-08-06] MEDS: PANTOPRAZOLE 40 MG TABEC PO SCH (08:40)
[2023-08-06] MEDS: ESCITALOPRAM 20 MG TAB PO SCH (08:40)
[2023-08-06] MEDS ORDERED: ARIPIPRAZOLE 2 MG PO SCH (09:00)
[2023-08-06] MEDS: HYDROcodone/APAP 5/325 MG 1 TAB TAB PO PRN (09:15)
[2023-08-06 12:00] VITALS: PULSE 78
[2023-08-06 16:00] VITALS: BP 154/84; PULSE 78; RESP 19; TEMP 98.1; O2SAT 97
[2023-08-06 20:00] VITALS: BP 138/61; PULSE 80; RESP 19; TEMP 97.2; O2SAT 98
[2023-08-07 04:00] VITALS: BP 180/83; PULSE 87; RESP 18; TEMP 97.2; O2SAT 99
[2023-08-07 06:52] LABS: ANION GAP 14.9 (8-16); CALCIUM 8.5 mg/dL (8.5-10.1); CARBON DIOXIDE 22.2 mmol/L (21-32); CHLORIDE 103 mmol/L (98-107); CREATININE 0.8 mg/dL (0.6-1.3); GLUCOSE 72 mg/dL (74-106); POTASSIUM 4.1 mmol/L (3.5-5.1); SODIUM SERUM 136 mmol/L (136-145); UREA NITROGEN, BLOOD 16 mg/dL (7-18)
[2023-08-07 06:55] LABS: BASOPHILS % (AUTO) 0.7 % (0.0-2.0); EOSINOPHILS # (AUTO) 0.1 K/uL (0-0.4); EOSINOPHILS % (AUTO) 1.6 % (0.0-4.0); HEMATOCRIT 38.4 % (36-48); HEMOGLOBIN 12.4 g/dL (12.0-16.0); LYMPHOCYTES # (AUTO) 1.6 K/uL (2.5-16.5); LYMPHOCYTES % (AUTO) 32.2 % (20.5-51.1); MEAN CORPUSCULAR HEMOGLOBIN 34 pg (27-31); MEAN CORPUSCULAR HGB CONC 32 g/dL (33-37); MEAN CORPUSCULAR VOLUME 103.4 fL (80-94); MONOCYTES # (AUTO) 0.3 K/uL (0.8-1.0); MONOCYTES % (AUTO) 6.6 % (1.7-9.3); NEUTROPHILS # (AUTO) 2.9 K/uL (1.8-7.7); NEUTROPHILS % (AUTO) 58.9 % (42.2-75.2); PLATELET COUNT (AUTO) 175 K/uL (140-450); RED BLOOD CELL COUNT(AUTO) 3.71 MIL/uL (4.20-5.40); RED CELL DISTRIBUTION WIDTH 15.4 % (11.6-13.7); WHITE BLOOD COUNT (AUTO) 4.9 K/uL (4.8-10.8)
[2023-08-07 08:00] VITALS: BP 120/57; PULSE 90; RESP 18; TEMP 97.2; O2SAT 99
[2023-08-07] MEDS: ARIPiprazole 10 MG TAB PO SCH (08:52)
[2023-08-07] MEDS ORDERED: VANCOMYCIN PER PHARMACY MC PRN (08:55)
[2023-08-07] MEDS ORDERED: METOPROLOL 25 MG TAB PO SCH (09:35)
[2023-08-07] MEDS: hydrALAZINE 20 MG/ML VIAL IVP ONE (10:00)
[2023-08-07] MEDS: METOPROLOL 25 MG TAB PO SCH (10:25)
[2023-08-07] MEDS: VANCOMYCIN 1.25GM PREMIX 250 ML IV SCH (10:29)
[2023-08-07 12:00] VITALS: BP 116/46; PULSE 2; RESP 18; TEMP 97.6; O2SAT 99
[2023-08-07] MEDS: KETOROLAC 15 MG/ML VIAL IVP PRN (13:38)
[2023-08-07 16:00] VITALS: BP 118/46; PULSE 2; RESP 19; TEMP 97.4; O2SAT 99
[2023-08-07] MEDS: ACYCLOVIR 800 MG TAB PO STA (18:06)
[2023-08-07] MEDS: LORazepam 1 MG TAB PO PRN (18:21)
[2023-08-07 20:00] VITALS: BP 150/63; PULSE 89; PULSE 97; RESP 18; RESP 19; TEMP 98.1; O2SAT 95; O2SAT 97; O2SAT 99
[2023-08-08 03:19] VITALS: PULSE 80
[2023-08-08 08:00] VITALS: BP 137/67; PULSE 81; RESP 18; TEMP 97.9; TEMP 98.1; O2SAT 94; O2SAT 99
[2023-08-08 08:23] LABS: BASOPHILS % (AUTO) 0.8 % (0.0-2.0); EOSINOPHILS # (AUTO) 0.1 K/uL (0-0.4); EOSINOPHILS % (AUTO) 2.6 % (0.0-4.0); HEMOGLOBIN 12.5 g/dL (12.0-16.0); LYMPHOCYTES # (AUTO) 1.2 K/uL (2.5-16.5); LYMPHOCYTES % (AUTO) 23.1 % (20.5-51.1); MEAN CORPUSCULAR HEMOGLOBIN 33 pg (27-31); MEAN CORPUSCULAR HGB CONC 33 g/dL (33-37); MEAN CORPUSCULAR VOLUME 99.7 fL (80-94); MONOCYTES # (AUTO) 0.3 K/uL (0.8-1.0); MONOCYTES % (AUTO) 5.6 % (1.7-9.3); NEUTROPHILS # (AUTO) 3.5 K/uL (1.8-7.7); NEUTROPHILS % (AUTO) 67.9 % (42.2-75.2); PLATELET COUNT (AUTO) 193 K/uL (140-450); RED BLOOD CELL COUNT(AUTO) 3.81 MIL/uL (4.20-5.40); WHITE BLOOD COUNT (AUTO) 5.2 K/uL (4.8-10.8)
[2023-08-08] MEDS: amLODIPine 5 MG TAB PO SCH (09:13)
[2023-08-08] MEDS: ACYCLOVIR 800 MG TAB PO SCH (09:13)
[2023-08-08 09:27] LABS: ANION GAP 12.6 (8-16); CALCIUM 8.9 mg/dL (8.5-10.1); CARBON DIOXIDE 25.6 mmol/L (21-32); CHLORIDE 103 mmol/L (98-107); CREATININE 0.9 mg/dL (0.6-1.3); GLUCOSE 72 mg/dL (74-106); POTASSIUM 4.2 mmol/L (3.5-5.1); SODIUM SERUM 137 mmol/L (136-145); UREA NITROGEN, BLOOD 9 mg/dL (7-18)
[2023-08-08] MEDS: MUPIROCIN CA NASAL 2% 1GM TUBE NS SCH (13:17)
[2023-08-08] MEDS: CHLORHEXADINE GLUC 2% CLOTH TP SCH (13:19)
[2023-08-08 16:00] VITALS: BP 116/82; PULSE 89; RESP 18; TEMP 97.2; O2SAT 96
[2023-08-08 20:00] VITALS: BP 136/68; PULSE 88; RESP 18; RESP 20; TEMP 97.8; TEMP 98.1; O2SAT 88; O2SAT 97
[2023-08-09 07:02] LABS: BASOPHILS % (AUTO) 0.7 % (0.0-2.0); EOSINOPHILS # (AUTO) 0.1 K/uL (0-0.4); EOSINOPHILS % (AUTO) 2.2 % (0.0-4.0); HEMATOCRIT 38.2 % (36-48); HEMOGLOBIN 12.9 g/dL (12.0-16.0); LYMPHOCYTES # (AUTO) 1.3 K/uL (2.5-16.5); LYMPHOCYTES % (AUTO) 26.9 % (20.5-51.1); MEAN CORPUSCULAR HEMOGLOBIN 34 pg (27-31); MEAN CORPUSCULAR HGB CONC 34 g/dL (33-37); MONOCYTES # (AUTO) 0.4 K/uL (0.8-1.0); MONOCYTES % (AUTO) 7.6 % (1.7-9.3); NEUTROPHILS # (AUTO) 3.1 K/uL (1.8-7.7); NEUTROPHILS % (AUTO) 62.6 % (42.2-75.2); PLATELET COUNT (AUTO) 180 K/uL (140-450); RED BLOOD CELL COUNT(AUTO) 3.86 MIL/uL (4.20-5.40); RED CELL DISTRIBUTION WIDTH 15.1 % (11.6-13.7); WHITE BLOOD COUNT (AUTO) 4.9 K/uL (4.8-10.8)
[2023-08-09 07:31] LABS: ANION GAP 13.3 (8-16); CALCIUM 8.5 mg/dL (8.5-10.1); CARBON DIOXIDE 25.4 mmol/L (21-32); CHLORIDE 101 mmol/L (98-107); GLUCOSE 91 mg/dL (74-106); POTASSIUM 3.7 mmol/L (3.5-5.1); SODIUM SERUM 136 mmol/L (136-145); UREA NITROGEN, BLOOD 9 mg/dL (7-18)
[2023-08-09 08:00] VITALS: BP 132/65; PULSE 87; RESP 18; TEMP 97.6; O2SAT 87
[2023-08-09 08:25] VITALS: PULSE 68; RESP 20; O2SAT 99
[2023-08-09 09:04] LABS: CREATININE 0.9 mg/dL (0.6-1.3)
[2023-08-09 16:00] VITALS: BP 136/60; PULSE 76; RESP 18; TEMP 97.1; O2SAT 76
[2023-08-09 20:00] VITALS: PULSE 94; RESP 18; TEMP 97.6; O2SAT 96
[2023-08-10] VITALS: BP 118/56; PULSE 70; RESP 18; TEMP 97.9; O2SAT 96
[2023-08-10 06:58] LABS: BASOPHILS # (AUTO) 0.1 K/uL (0.00-0.22); BASOPHILS % (AUTO) 0.9 % (0.0-2.0); EOSINOPHILS # (AUTO) 0.3 K/uL (0-0.4); EOSINOPHILS % (AUTO) 4.7 % (0.0-4.0); HEMATOCRIT 35.5 % (36-48); LYMPHOCYTES # (AUTO) 2.3 K/uL (2.5-16.5); LYMPHOCYTES % (AUTO) 42.9 % (20.5-51.1); MEAN CORPUSCULAR HEMOGLOBIN 34 pg (27-31); MEAN CORPUSCULAR HGB CONC 34 g/dL (33-37); MEAN CORPUSCULAR VOLUME 99.8 fL (80-94); MONOCYTES # (AUTO) 0.6 K/uL (0.8-1.0); MONOCYTES % (AUTO) 10.9 % (1.7-9.3); NEUTROPHILS # (AUTO) 2.2 K/uL (1.8-7.7); NEUTROPHILS % (AUTO) 40.6 % (42.2-75.2); PLATELET COUNT (AUTO) 175 K/uL (140-450); RED BLOOD CELL COUNT(AUTO) 3.55 MIL/uL (4.20-5.40); RED CELL DISTRIBUTION WIDTH 14.9 % (11.6-13.7); WHITE BLOOD COUNT (AUTO) 5.4 K/uL (4.8-10.8)
[2023-08-10 07:30] LABS: ALANINE AMINOTRANSFERASE 11 U/L (12-78); ALBUMIN 2.4 g/dL (3.4-5.0); ALKALINE PHOSPHATASE 81 U/L (50-136); ANION GAP 9.7 (8-16); ASPARTATE AMINOTRANSFERASE 19 U/L (15-37); CALCIUM 8.4 mg/dL (8.5-10.1); CARBON DIOXIDE 28.5 mmol/L (21-32); CHLORIDE 103 mmol/L (98-107); GLUCOSE 77 mg/dL (74-106); POTASSIUM 4.2 mmol/L (3.5-5.1); SODIUM SERUM 137 mmol/L (136-145); TOTAL BILIRUBIN 0.3 mg/dL (0.0-1.0); TOTAL PROTEIN, SERUM 6.2 g/dL (6.4-8.2); UREA NITROGEN, BLOOD 12 mg/dL (7-18)
[2023-08-10 07:42] LABS: FREE T4 (FREE THYROXINE) 1.16 ng/dL (0.76-1.46); THYROID STIMULATING HORMONE 3.95 uIU/mL (0.34-3.74)
[2023-08-10 08:00] VITALS: BP 129/70; PULSE 83; PULSE 89; RESP 18; RESP 20; TEMP 97.9; O2SAT 96; O2SAT 99
[2023-08-10 09:00] VITALS: TEMP 97.1
[2023-08-10 16:00] VITALS: BP 125/64; PULSE 81; RESP 18; TEMP 98.1; O2SAT 96
[2023-08-10 20:00] VITALS: PULSE 86; RESP 18; TEMP 97.8; O2SAT 95
[2023-08-11] VITALS: BP 127/55; PULSE 86; RESP 18; TEMP 97.8; O2SAT 95
[2023-08-11 07:35] LABS: ALANINE AMINOTRANSFERASE 7 U/L (12-78); ALBUMIN 2.1 g/dL (3.4-5.0); ALKALINE PHOSPHATASE 74 U/L (50-136); ANION GAP 11.6 (8-16); ASPARTATE AMINOTRANSFERASE 17 U/L (15-37); CALCIUM 8.1 mg/dL (8.5-10.1); CARBON DIOXIDE 24.3 mmol/L (21-32); CHLORIDE 105 mmol/L (98-107); CREATININE 0.8 mg/dL (0.6-1.3); GLUCOSE 87 mg/dL (74-106); POTASSIUM 3.9 mmol/L (3.5-5.1); SODIUM SERUM 137 mmol/L (136-145); TOTAL BILIRUBIN 0.2 mg/dL (0.0-1.0); TOTAL PROTEIN, SERUM 5.6 g/dL (6.4-8.2); UREA NITROGEN, BLOOD 11 mg/dL (7-18)
[2023-08-11 07:50] LABS: BASOPHILS # (AUTO) 0.1 K/uL (0.00-0.22); BASOPHILS % (AUTO) 0.8 % (0.0-2.0); EOSINOPHILS # (AUTO) 0.3 K/uL (0-0.4); EOSINOPHILS % (AUTO) 3.5 % (0.0-4.0); HEMATOCRIT 33.3 % (36-48); LYMPHOCYTES # (AUTO) 3.1 K/uL (2.5-16.5); LYMPHOCYTES % (AUTO) 39.3 % (20.5-51.1); MEAN CORPUSCULAR HEMOGLOBIN 33 pg (27-31); MEAN CORPUSCULAR HGB CONC 33 g/dL (33-37); MEAN CORPUSCULAR VOLUME 99.9 fL (80-94); MONOCYTES # (AUTO) 0.9 K/uL (0.8-1.0); MONOCYTES % (AUTO) 11.9 % (1.7-9.3); NEUTROPHILS # (AUTO) 3.5 K/uL (1.8-7.7); NEUTROPHILS % (AUTO) 44.5 % (42.2-75.2); PLATELET COUNT (AUTO) 218 K/uL (140-450); RED BLOOD CELL COUNT(AUTO) 3.33 MIL/uL (4.20-5.40); WHITE BLOOD COUNT (AUTO) 7.8 K/uL (4.8-10.8)
[2023-08-11 07:56] VITALS: TEMP 97.1
[2023-08-11 07:57] VITALS: PULSE 88; RESP 19; O2SAT 99
[2023-08-11] MEDS ORDERED: ACYC-278 PO (14:43)
[2023-08-11] MEDS ORDERED: QUET50TA PO (14:47)
[2023-08-11 15:16] VITALS: BP 123/65; PULSE 68; RESP 20; TEMP 97.1
== END 2023-08-11 15:55 | disposition home or self-care (01) | DRG 391 ==
LOC: MED 15:33 → MMU 18:11 → MTU 08-07 19:10
PROVIDERS: ADMIT Student in an Organized Health Care Education/Training Program; ATTEND Student in an Organized Health Care Education/Training Program
DX: K22.2 Esophageal obstruction (principal); S27.819A Unspecified injury of esophagus (thoracic part), initial encounter; N39.0 Urinary tract infection, site not specified; B02.22 Postherpetic trigeminal neuralgia; E03.9 Hypothyroidism, unspecified; F32.A Depression, unspecified; J01.90 Acute sinusitis, unspecified; F41.9 Anxiety disorder, unspecified; M81.0 Age-related osteoporosis without current pathological fracture; X58.XXXA Exposure to other specified factors, initial encounter; I10 Essential (primary) hypertension; G62.9 Polyneuropathy, unspecified; Y93.89 Activity, other specified; Y92.89 Other specified places as the place of occurrence of the external cause; Y99.8 Other external cause status
CPT/HCPCS: 36415; 70486; 71045; 71260; 80048; 80053; 80202; 81001; 83605; 83880; 84439; 84443; 84479; 84484; 85025; 86140; 87040; 87081; 87086; 93005; 96365; 97116; 97163-GP; 97530; 99285; J0360; J0696; J1885; J3372; J7060